=== PATIENT | female | born 1990 | race Caucasian/White ===

== ENCOUNTER 2020-03-02 | Emergency (ER) | payer SELFPAY ==
[~2020-03-02] VITALS: Ht 165.1 cm; Wt 122.5 kg
[2020-03-02] MEDS ORDERED: DEXAMETHASONE SOD PHOS 10 MG/1 ML VIAL IM STA (00:23)
[2020-03-02] MEDS ORDERED: ACETAMINOPHEN 325 MG TAB PO STA (00:23)
[2020-03-02] MEDS ORDERED: ONDANSETRON HCL 4 MG ORAL DISINTEGRATING TAB PO STA (00:23)
== END 2020-03-02 01:15 | disposition home or self-care (01) ==
LOC: ER 00:07
DX: J40 Bronchitis, not specified as acute or chronic (principal)
CPT/HCPCS: 99283; J1100; Q0162